=== PATIENT | female | born 1930 | race Hispanic/Latino ===

== ENCOUNTER → 2017-12-27 | Outpatient (CLI) | payer OTHER | END | disposition home or self-care (01) | LOC: SHCH 07:59 | PROVIDERS: ATTEND Internal Medicine Cardiovascular Disease | DX: I82.409 Acute embolism and thrombosis of unspecified deep veins of unspecified lower extremity (principal) | CPT/HCPCS: 93971 ==

== ENCOUNTER 2019-03-06 05:59 | Day surgery (SDC) | payer OTHER ==
[~2019-03-06] VITALS: Ht 152.4 cm; Wt 73.0 kg
[2019-03-06] MEDS ORDERED: SODIUM CHLORIDE 0.9% 1000ML 1,000 ML IV ONE (06:15)
[2019-03-06 07:22] VITALS: BP 155/56
[2019-03-06] MEDS ORDERED: TRAM50TA4 PO (07:38)
[2019-03-06] MEDS ORDERED: MULT-1203 PO (07:38)
[2019-03-06] MEDS ORDERED: CALC-1174 PO (07:38)
[2019-03-06] MEDS ORDERED: SIMV-46 PO (07:38)
[2019-03-06] MEDS ORDERED: HYDR25TA PO (07:38)
[2019-03-06] MEDS ORDERED: SUCR1TAB28 PO (07:38)
[2019-03-06] MEDS ORDERED: LOSA100T58 PO (07:38)
[2019-03-06] MEDS ORDERED: PANT40TA25 PO (07:38)
[2019-03-06] MEDS ORDERED: METO50TA18 PO (07:38)
[2019-03-06] MEDS ORDERED: PROPOFOL 10 MG/ML 20ML VIAL IV ONE (07:56)
[2019-03-06] MEDS ORDERED: LIDOCAINE HCL-MPF 2% 5ML VIAL ONE (07:58)
[2019-03-06 08:03] VITALS: BP 143/55
[2019-03-06 08:15] VITALS: BP 144/48
[2019-03-06 08:30] VITALS: BP 142/57
== END 2019-03-06 08:36 | disposition home or self-care (01) ==
LOC: ENDO 05:59 → DAH 05:59 → ENDO 08:36
PROVIDERS: ATTEND Internal Medicine
DX: K29.50 Unspecified chronic gastritis without bleeding (principal); K25.9 Gastric ulcer, unspecified as acute or chronic, without hemorrhage or perforation; K44.9 Diaphragmatic hernia without obstruction or gangrene; I10 Essential (primary) hypertension; M19.90 Unspecified osteoarthritis, unspecified site; Z79.899 Other long term (current) drug therapy; Z90.710 Acquired absence of both cervix and uterus; Z98.890 Other specified postprocedural states; Z82.3 Family history of stroke; Z82.5 Family history of asthma and other chronic lower respiratory diseases
CPT/HCPCS: 43239; 88305; A4215; A4221; A4222; A4223; A4606; A4620; A4663; J2704; J3490; J7030

== ENCOUNTER → 2019-06-12 | Outpatient (CLI) | payer OTHER ==
[~2019-06-12] MED LIST: CALC-1174 PO; HYDR25TA PO; IOHEXOL 350 MG/ML 100ML INFUS..BTL IV ONE; LOSA100T58 PO; METO50TA18 PO; MULT-1203 PO; PANT40TA55 PO; SIMV-46 PO; TRAM50TA4 PO
== END | disposition home or self-care (01) ==
LOC: RAH 07:57
PROVIDERS: ATTEND Internal Medicine
DX: K80.20 Calculus of gallbladder without cholecystitis without obstruction (principal); K44.9 Diaphragmatic hernia without obstruction or gangrene; K43.9 Ventral hernia without obstruction or gangrene; K42.9 Umbilical hernia without obstruction or gangrene; J98.11 Atelectasis
CPT/HCPCS: 74178; Q9967